=== PATIENT | female | born 1990 | race Two or more races ===

== ENCOUNTER 2017-12-22 19:54 | Emergency (ER) | payer MEDICAID, OTHER ==
[~2017-12-22] VITALS: Ht 160 cm; Wt 86.2 kg
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
--- NOTE | 2017-12-22 20:10 | NUR ---
DR MAYO AT BEDSIDE TO EVALUATE PATIENT.
[2017-12-22] MEDS ORDERED: IBUPROFEN 600 MG TABLET PO ONE (20:21)
[2017-12-22] MEDS: IBUPROFEN 600 MG TABLET PO ONE (20:25)
--- NOTE | 2017-12-22 20:25 | NUR ---
MEDICATED PATIENT ORDERED BY DR MAYO.
--- NOTE | 2017-12-22 20:27 | NUR ---
Patient discharged to home in stable condition. Written and verbal after care instructions given. Patient verbalizes understanding of instruction. Patient is ambulatory with steady gait, vss. Patient accompanied by friend. nad noted. no further complaints.
[2017-12-22 20:28] VITALS: BP 118/85
== END 2017-12-22 20:28 | disposition home or self-care (01) ==
LOC: ER 19:55
DX: S70.12XA Contusion of left thigh, initial encounter (principal); S70.11XA Contusion of right thigh, initial encounter; R07.89 Other chest pain; Z90.49 Acquired absence of other specified parts of digestive tract; W23.0XXA Caught, crushed, jammed, or pinched between moving objects, initial encounter; Y93.89 Activity, other specified; Y92.89 Other specified places as the place of occurrence of the external cause; Y99.8 Other external cause status
CPT/HCPCS: A4606; Z7610

== ENCOUNTER 2018-06-17 02:10 | Emergency (ER) | payer OTHER ==
[~2018-06-17] VITALS: Ht 160 cm; Wt 79.4 kg
--- NOTE | 2018-06-17 02:36 | NUR ---
PT'S NAME CALLED THREE TIMES, NO RESPONSE. PT LEFT BEFORE TRIAGE
[2018-06-17 03:24] LABS: BASOPHILS # (AUTO) 0.1 /CMM (0.0-0.2); BASOPHILS % (AUTO) 0.5 % (0.0-2.0); EOSINOPHILS % (AUTO) 1.5 % (0.0-6.0); HEMATOCRIT 40 % (33-45); HEMOGLOBIN 12.8 g/dL (11.5-14.8); LYMPHOCYTES # (AUTO) 2.1 /CMM (0.8-4.8); LYMPHOCYTES % (AUTO) 22.1 % (20.0-44.0); MEAN CORPUSCULAR HGB CONC 32 g/dl (31.0-36.0); MEAN CORPUSCULAR VOLUME 79 fL (82-100); MONOCYTES # (AUTO) 0.6 /CMM (0.1-1.30); MONOCYTES % (AUTO) 5.8 % (2.0-12.0); NEUTROPHILS # (AUTO) 6.7 /CMM (1.8-8.9); NEUTROPHILS % (AUTO) 70.1 % (43.0-81.0); PLATELET COUNT (AUTO) 194 /CMM (150-450); RED BLOOD CELL COUNT(AUTO) 5.03 MIL/uL (4.0-5.2); WHITE BLOOD COUNT (AUTO) 9.6 K/uL (4.3-11.0)
[2018-06-17 03:25] LABS: APPEARANCE,URINE CLEAR (CLEAR); BILIRUBIN,URINE NEGATIVE (NEGATIVE); BLOOD, URINE 2+ Ery/uL (NEGATIVE); COLOR,URINE YELLOW (YELLOW); KETONES,URINE NEGATIVE (NEGATIVE); LEUKOCYTE ESTERASE ,URINE NEGATIVE (NEGATIVE); NITRITE, URINE NEGATIVE (NEGATIVE); PH,URINE 5.5 (5.0-8.0); PROTEIN,URINE NEGATIVE (NEGATIVE); UGLUCOSE NEGATIVE (NEGATIVE); UROBILINOGEN,URINE 0.2 EU/dL (0.2)
[2018-06-17 03:37] LABS: BACTERIA,URINE None seen /HPF (None Seen); SQUAMOUS EPITHELIAL CELL,UR Few /HPF (None Seen); WBC,URINE 0-2 /HPF (0-3)
[2018-06-17 05:43] VITALS: BP 119/71
== END 2018-06-17 05:44 | disposition home or self-care (01) ==
LOC: ER 02:12
DX: O20.0 Threatened abortion (principal); N83.201 Unspecified ovarian cyst, right side; Z90.89 Acquired absence of other organs; Z60.2 Problems related to living alone
CPT/HCPCS: 36415; 76856; 81001; 84702; 85025; 86850; 96372; 99285; A4606; J2790; Z7610; 81000-TC; P9016-BL